=== PATIENT | male | born 1940 | race Caucasian/White ===

== ENCOUNTER 2017-01-08 10:48 | Emergency (ER) | payer MEDICARE ==
[~2017-01-08] VITALS: Ht 170.2 cm; Wt 83.9 kg
[2017-01-08 11:00] VITALS: BP 169/97
[2017-01-08] MEDS ORDERED: LIDOCAINE 1% / SOD BICARB 8.4% 20 ML VIAL. IJ ONE (12:00)
[2017-01-08] MEDS ORDERED: CLIN150C14 PO (13:06)
[2017-01-08] MEDS ORDERED: HYDR-971 PO (13:06)
--- NOTE | 2017-01-08 13:06 | PHYS DOC ---
Past Medical History Past Medical History: Asthma, Sinusitis, Other Additional Past Medical Histor: CERVIAL STENOSIS Past Surgical History: Other Additional Past Surgical Histo: MULTIPLE FACIAL SX Alcohol Use: Rarely Drug Use: None Adult General Chief Complaint Chief Complaint: LACERATION/AVULSION HPI HPI Patient is a 76 year old male with history of asthma and sinusitis who presents today with nose laceration as well as contusions from falling. Patient states he was ambulating when he tripped on a curb and fell. Patient denies any loss of consciousness, denies any use of blood thinners. 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 Review of Systems Review of Systems Constitutional: Denies fever or chills [] Eyes: Denies change in visual acuity, redness, or eye pain [] HENT: Denies nasal congestion or sore throat [] Respiratory: Denies cough or shortness of breath [] Cardiovascular: No additional information not addressed in HPI [] GI: Denies abdominal pain, nausea, vomiting, bloody stools or diarrhea [] : Denies dysuria or hematuria [] Musculoskeletal: Denies back pain or joint pain [] Integument: Laceration to the nose, contusions to bilateral knee and right hand. Neurologic: Denies headache, focal weakness or sensory changes [] Current Medications Current Medications Current Medications Medications (Trade) Dose Ordered Sig/[place] Start Time Stop Time Status Last Admin Dose Admin Lidocaine/Sodium Bicarbonate (Buffered Lidocaine 1%) 20 ml 1X ONCE 01/08/17 12:00 01/08/17 12:01 DC 01/08/17 12:02 20 ML Allergies Allergies Allergies Coded Allergies Type Severity Reaction Last Updated Verified erythromycin base Allergy Intermediate 01/08/17 Yes Cephalosporins Adverse Reaction Unknown HYPOTENSION 01/08/17 Yes NSAIDS (Non-Steroidal Anti-Inflamma Adverse Reaction Unknown asthma 01/08/17 Yes Physical Exam Physical Exam Constitutional: Well developed, well nourished, no acute distress, non-toxic appearance. [] HENT: Normocephalic, atraumatic, bilateral external ears normal, oropharynx moist, no oral exudates. Eyes: PERRLA, EOMI, conjunctiva normal, no discharge. [] Neck: Normal range of motion, no tenderness, supple, no stridor. [] Cardiovascular:Heart rate regular rhythm, no murmur [] Lungs & Thorax: Bilateral breath sounds clear to auscultation [] Abdomen: Bowel sounds normal, soft, no tenderness, no masses, no pulsatile masses. [] Skin: nasal bridge with a laceration approximately 2 cm long. The laceration is not cutting through. There is dry blood in nasal cavities. The nose is not obviously deformed. There is contusions noted on bilateral knees and the right hand. Full range of motion bilateral lower extremities. Back: No tenderness, no CVA tenderness. [] Extremities: No tenderness, no cyanosis, no clubbing, ROM intact, no edema. [] Neurologic: Alert and oriented X 3, normal motor function, normal sensory function, no focal deficits noted. [] Psychologic: Affect normal, judgement normal, mood normal. [] Current Patient Data Vital Signs Vital Signs Date Time Temp Pulse Resp B/P (MAP) Pulse Ox O2 Delivery O2 Flow Rate FiO2 01/08/17 11:00 97.6 58 20 99 Room Air 97.6 EKG EKG [] Radiology/Procedures Radiology/Procedures Indication: Nose laceration Procedure: The patient was placed in the appropriate position and anesthesia around the laceration was 1% buffered lidocaine. The laceration was explored for foreign objects, none was found. The area was then 10 ML of normal saline and Betadine. The laceration was closed with 6 interrupted sutures using 6. 0 Prolene. The wound was left open to air. Total repaired wound length: Approximately 2 cm long Other Items: none The patient tolerated the procedure well Complications: none Course & Med Decision Making Course & Med Decision Making Pertinent Labs and Imaging studies reviewed. (See chart for details) Patient is in the ED status post falling with nose laceration, contusions to the right wrist and bilateral knees. Offered patient CT of the face. He declined and he is a former doctor. He states his been exposed to a lot of radiation by nature of his former job. He has history of sinus surgery. He was put on clindamycin after his laceration was repaired. He is to follow-up with his own doctor for suture removal as well as for follow-up. His tetanus is up-to -date. Provided wound care instructions as well as return precautions. Dragon Disclaimer Dragon Disclaimer This electronic medical record was generated, in whole or in part, using a voice recognition dictation system. Departure Departure Impression: Primary Impression: Laceration of nose Additional Impressions: Fall from standing Facial contusion Contusion of knee, right Contusion of knee, left Disposition: 01 HOME, SELF-CARE Condition: STABLE Referrals: UNKNOWN PCP NAME (PCP) follow up with your doctor in 7 days for suture removal Patient Instructions: Contusion, [id number], Fall Prevention and Home Safety , Laceration Care, Adult Additional Instructions: Please keep your laceration site clean and dry. Apply Neosporin to the laceration site and bruised areas on your knees twice a day. We put you on antibiotics specifically clindamycin ensure you complete them. Kindly follow-up with your own doctor in the next 7 days to have the stitches. Scripts Hydrocodone/Apap 5-325 (NORCO 5-325 TABLET) 1 Each Tablet 1-2 TAB PO Q4-6HRS, #20 TAB Prov: GAURI MCDERMOTT APRN 01/08/17 Clindamycin Hcl (CLINDAMYCIN HCL) 150 Mg Capsule 3 CAP PO TID, #90 CAP Prov: GAURI MCDERMOTT APRN 01/08/17 Problem Qualifiers Primary Impression: Laceration of nose Encounter type: initial encounter Qualified Codes: S01.21XA - Laceration without foreign body of nose, initial encounter Additional Impressions: Fall from standing Encounter type: initial encounter Qualified Codes: W19.XXXA - Unspecified fall, initial encounter Facial contusion Encounter type: initial encounter Qualified Codes: S00.83XA - Contusion of other part of head, initial encounter Contusion of knee, right Encounter type: initial encounter Qualified Codes: S80.01XA - Contusion of right knee, initial encounter Contusion of knee, left Encounter type: initial encounter Qualified Codes: S80.02XA - Contusion of left knee, initial encounter GAURI MCDERMOTT HEAD CAGER Jan 08, 2017 13:06
== END 2017-01-08 13:12 | disposition home or self-care (01) ==
LOC: ER 10:48
DX: S01.21XA Laceration without foreign body of nose, initial encounter (principal); S80.02XA Contusion of left knee, initial encounter; S80.01XA Contusion of right knee, initial encounter; S60.211A Contusion of right wrist, initial encounter; J45.909 Unspecified asthma, uncomplicated; Z88.1 Allergy status to other antibiotic agents; Z88.6 Allergy status to analgesic agent; W01.0XXA Fall on same level from slipping, tripping and stumbling without subsequent striking against object, initial encounter; Y93.89 Activity, other specified; Y92.89 Other specified places as the place of occurrence of the external cause; Y99.8 Other external cause status
CPT/HCPCS: 12011; 99283-25